=== PATIENT | male | born 1980 | race Caucasian/White ===

== ENCOUNTER 2020-05-26 19:32 | Emergency (ER) | payer SELFPAY ==
[~2020-05-26] VITALS: Ht 177.8 cm; Wt 95.0 kg
[~2020-05-26 19:32] MED LIST: NEOM10SO7 AU
[2020-05-26] MEDS ORDERED: NAPR-514 PO (20:15)
[2020-05-26] MEDS ORDERED: SULF1TAB24 PO (20:15)
[2020-05-26] MEDS ORDERED: NAPROXEN 500 MG TABLET PO ONE (20:15)
[2020-05-26] MEDS ORDERED: SMZ/TMP 800/160MG TABLET. PO ONE (20:15)
--- NOTE | 2020-05-26 20:15 | PHYS DOC ---
Past History Past Medical History: Bipolar, COPD, Other Past Surgical History: Other Smoking: Greater than 1 pack/day Alcohol Use: None Drug Use: None General Adult EDM: Chief Complaint: HAND PROBLEM HPI: HPI: 39-year-old male presents with right hand cellulitis. The patient started to have redness and warmth of an area on the dorsal side of his hand extending down his fourth digit yesterday. During the course of today, the area has doubled in size and is almost up to his wrist. It is red and warm to the touch. He has had cellulitis in that hand before. There is no obvious injury. He does have what appear to be 2 insect bites on the anterior part of his wrist. There are some mild cellulitis around one of them. The patient is an IV drug user but he shoots up more proximal than this location. There are no track hatch in the immediate vicinity. He denies fever chills. He has been hospitalized for reported MRSA in the past. Review of Systems: Review of Systems: Constitutional: Denies fever or chills Eyes: Denies change in visual acuity HENT: Denies nasal congestion or sore throat Respiratory: Denies cough or shortness of breath Cardiovascular: Denies chest pain or edema GI: Denies abdominal pain, nausea, vomiting, bloody stools or diarrhea : Denies dysuria Musculoskeletal: Denies back pain or joint pain Integument: Cellulitis right hand Neurologic: Denies headache, focal weakness or sensory changes Endocrine: Denies polyuria or polydipsia Lymphatic: Denies swollen glands Psychiatric: Denies depression or anxiety Allergies: Allergies: Allergies Coded Allergies Type Severity Reaction Last Updated Verified Erythromycin Base Allergy Mild 12/29/13 No haloperidol Allergy Unknown 12/29/13 No Physical Exam: PE: Constitutional: Well developed, well nourished, no acute distress, non-toxic appearance. [] HENT: Normocephalic, atraumatic, bilateral external ears normal, oropharynx moist, no oral exudates, nose normal. [] Eyes: PERRLA, EOMI, conjunctiva normal, no discharge. [] Neck: Normal range of motion, no tenderness, supple, no stridor. [] Cardiovascular:Heart rate regular rhythm, no murmur [] Lungs & Thorax: Bilateral breath sounds clear to auscultation [] Abdomen: Bowel sounds normal, soft, no tenderness, no masses, no pulsatile rios s. [] Skin: Warm, erythematous area 4 cm x 8 cm of the dorsal hand extending down the fourth digit consistent with cellulitis. No fluctuant abscess. 2 small papules on anterior wrist 1 with 1 cm surrounding cellulitis.. [] Back: No tenderness, no CVA tenderness. [] Extremities: No tenderness, no cyanosis, no clubbing, ROM intact, no edema. [] Neurologic: Alert and oriented X 3, normal motor function, normal sensory fun ction, no focal deficits noted. [] Psychologic: Affect normal, judgement normal, mood normal. [] Current Patient Data: Vital Signs: Vital Signs Date Time Temp Pulse Resp B/P (MAP) Pulse Ox O2 Delivery O2 Flow Rate FiO2 05/26/20 19:34 98.2 86 18 109/71 (84) 98 Room Air EKG: EKG: [] Radiology/Procedures: Radiology/Procedures: [] Heart Score: Risk Factors: Risk Factors: DM, Current or recent (<one month) smoker, HTN, HLP, family history of CAD, obesity. Risk Scores: Score 0 - 3: 2.5% MACE over next 6 weeks - Discharge Home Score 4 - 6: 20.3% MACE over next 6 weeks - Admit for Clinical Observation Score 7 - 10: 72.7% MACE over next 6 weeks - Early Invasive Strategies Course & Med Decision Making: Course & Med Decision Making Pertinent Labs and Imaging studies reviewed. (See chart for details) I will attempt oral antibiotics with Bactrim DS. If this area grows significantly tomorrow, the patient may need to come back to the hospital for admission and IV antibiotics. He states verbal understanding. He is comfortable with this plan. He is stable for discharge at this time. [] Dragon Disclaimer: Dragon Disclaimer: This electronic medical record was generated, in whole or in part, using a voice recognition dictation system. Departure Departure: Impression: Primary Impression: Cellulitis of right hand Disposition: 01 DC HOME SELF CARE/HOMELESS Condition: STABLE Referrals: PCP,JORDON (PCP) Patient Instructions: Cellulitis, [id number] Scripts Sulfamethoxazole/Trimethoprim (BACTRIM DS TABLET) 1 Each Tablet 1 TAB PO BID for cellulitis for 7 Days, #14 TAB 0 Refills Prov: FLAQUITO MARQUEZ DO 05/26/20 Naproxen (NAPROXEN) 500 Mg Tablet 1 TAB PO BID PRN for PAIN for 15 Days, #30 TAB 0 Refills Prov: FLAQUITO MARQUEZ DO 05/26/20 FLAQUITO MARQUEZ DO May 26, 2020 20:15
[2020-05-26 20:40] VITALS: BP 110/70
== END 2020-05-26 20:40 | disposition home or self-care (01) ==
LOC: ER 19:32
DX: L03.113 Cellulitis of right upper limb (principal); J44.9 Chronic obstructive pulmonary disease, unspecified; F31.9 Bipolar disorder, unspecified; Z87.891 Personal history of nicotine dependence; Z88.1 Allergy status to other antibiotic agents; Z88.8 Allergy status to other drugs, medicaments and biological substances
CPT/HCPCS: 99283